=== PATIENT | female | born 1990 | race Two or more races ===

== ENCOUNTER → 2020-03-02 | Day surgery (SDC) | payer OTHER ==
[~2020-03-02] MED LIST: [UNRECOGNIZED DRUG - OTHER] PO
== END | disposition home or self-care (01) ==
LOC: ADM 02-24 08:45 → CIR.AMB 08:30
PROVIDERS: ATTEND Obstetrics & Gynecology Obstetrics
DX: N72 Inflammatory disease of cervix uteri (principal); Z20.828 Contact with and (suspected) exposure to other viral communicable diseases